=== PATIENT | female | born 1975 | race Caucasian/White ===

== ENCOUNTER 2023-05-23 13:30 | Outpatient (CLI) | payer BC, SELFPAY ==
--- NOTE | 2023-05-23 13:45 | MR_ITS ---
[address] [address] Phone:?[phone] Fax:?[phone] Referring Physician Information: Nataly Burns [address] [facility] [address] Phone:?[phone] Fax:?[phone] Patient:?Ariana Costello D.O.B:?1975 Sex:?Female Phone:?[phone] [facility] MRN:?[id number] Exam Date:?05/23/2023 EXAM: MRI EXAMINATION OF THE LEFT KNEE CLINICAL INFORMATION: Left knee pain. No history of surgery to this area. Evaluate medial meniscus tear. Evaluate medial compartment internal derangement. TECHNICAL INFORMATION: Coronal PD and STIR. Axial PD and T2 fat saturation. Sagittal PD and PD fat saturation images acquired. No prior studies for comparison. INTERPRETATION: Bones: There is a minimal appearance of marrow edema signal which involves the periphery of the medial tibial plateau. No evidence for an occult fracture or AVN. No other abnormal bone marrow edema pattern is identified. Ligaments and tendons: The medial collateral ligament is intact, without acute sprain or tear. The iliotibial band, fibular collateral ligament, biceps femoris tendon and popliteus tendon all are intact. The anterior cruciate ligament is intact without acute sprain or tear. The posterior cruciate ligament is intact. Extensor Mechanism: The patellar and quadriceps tendons are intact. The medial and lateral retinacula are intact. Knee Joint: There is a large knee joint effusion. No discrete popliteal cyst. There are changes of synovitis within the joint. No discrete loose body. 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 Grade II chondromalacia involves the mid to peripheral surface of the medial tibial plateau. Horizontal intrasubstance signal within the posterior horn medial meniscus. No evidence for surface extension as tear. No flap fragment or parameniscal cyst. Lateral Compartment: There is no evidence for discrete lateral meniscal tear. No displaced flap fragment or parameniscal cyst. There is no focal chondral defect. No other significant changes of chondromalacia. Patellofemoral articulation: There is a 5 mm focus of grade II to III chondromalacia towards the superior surface of the medial trochlear groove. Grade I chondromalacia along the midline trochlear groove. CONCLUSION: 1. 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 2. Horizontal intrasubstance signal in keeping with mucoid degeneration of the posterior horn medial meniscus. No evidence for surface extension as tear. 3. No lateral meniscal tear. The cruciate ligaments are intact. 4. Trochlear groove chondromalacia includes a 5 mm focus of grade II to III chondromalacia medially. 5. There is a large knee joint effusion. No evidence for a loose body. KES Electronically signed on 05/24/2023 10:35:00 AM by Adam Maria M.D.
== END 2023-05-23 13:31 | disposition home or self-care (01) ==
PROVIDERS: PCP Family Medicine; Visit Provider Physician Assistant
DX: M25.562 Pain in left knee (principal); M94.262 Chondromalacia, left knee; S83.242A Other tear of medial meniscus, current injury, left knee, initial encounter; M25.462 Effusion, left knee
CPT/HCPCS: 73721